=== PATIENT | female | born 1985 | race Two or more races ===

== ENCOUNTER 2016-11-01 17:12 | Emergency (ER) | payer MEDICAID ==
[~2016-11-01] VITALS: Ht 165.1 cm; Wt 49.0 kg
[2016-11-01 17:13] VITALS: BP 138/86
== END 2016-11-01 17:37 | disposition left against medical advice (07) ==
LOC: ER 17:12
DX: F41.9 Anxiety disorder, unspecified (principal); Z53.21 Procedure and treatment not carried out due to patient leaving prior to being seen by health care provider